=== PATIENT | female | born 1945 | race Caucasian/White ===

== ENCOUNTER → 2016-08-11 | Outpatient (CLI) | payer MEDICARE, OTHER ==
[~2016-08-11] MED LIST: IOHEXOL 350 MG/ML 100ML IJ ONE; READI-CAT 2 (BARIUM SULF)(VANILLA SMOOTHIE) 450ML ONE
[2016-08-11 09:00] VITALS: BP 150/77
[2016-08-11 09:55] VITALS: BP 137/70
== END | disposition home or self-care (01) ==
LOC: Rad HDHVI 08:48
PROVIDERS: ATTEND Internal Medicine Cardiovascular Disease
DX: I10 Essential (primary) hypertension (principal); M32.8 Other forms of systemic lupus erythematosus; E78.5 Hyperlipidemia, unspecified; M19.91 Primary osteoarthritis, unspecified site; G47.33 Obstructive sleep apnea (adult) (pediatric); R53.1 Weakness; E78.1 Pure hyperglyceridemia; I70.0 Atherosclerosis of aorta; N28.89 Other specified disorders of kidney and ureter; R06.02 Shortness of breath
CPT/HCPCS: 74177; G0463; Q9967

== ENCOUNTER → 2016-09-15 | Outpatient (CLI) | payer MEDICARE, OTHER | END | disposition home or self-care (01) | LOC: Rad HDHVI 08:45 | PROVIDERS: ATTEND Internal Medicine Cardiovascular Disease | DX: I10 Essential (primary) hypertension (principal); E78.4 Other hyperlipidemia; I07.1 Rheumatic tricuspid insufficiency; I34.2 Nonrheumatic mitral (valve) stenosis; I35.0 Nonrheumatic aortic (valve) stenosis | CPT/HCPCS: 93306 ==

== ENCOUNTER → 2016-09-23 | Outpatient (CLI) | payer MEDICARE, OTHER | END | disposition home or self-care (01) | LOC: LAB 13:48 | PROVIDERS: ATTEND Internal Medicine | DX: B01.9 Varicella without complication (principal) | CPT/HCPCS: 36415; 86706; 86735; 86762; 86765; 86787 ==

== ENCOUNTER → 2016-10-27 | Outpatient (CLI) | payer MEDICARE, OTHER | END | disposition home or self-care (01) | LOC: Rad HDHVI 11:33 | PROVIDERS: ATTEND Internal Medicine Cardiovascular Disease | DX: M53.3 Sacrococcygeal disorders, not elsewhere classified (principal) | CPT/HCPCS: 72220 ==

== ENCOUNTER → 2016-12-31 | Outpatient (CLI) | payer MEDICARE, OTHER | END | disposition home or self-care (01) | LOC: Rad HDHVI 13:51 | PROVIDERS: ATTEND Internal Medicine Cardiovascular Disease | DX: R07.9 Chest pain, unspecified (principal) | CPT/HCPCS: 93306 ==

== ENCOUNTER → 2017-01-12 | Outpatient (CLI) | payer MEDICARE, OTHER ==
[2017-01-12 10:16] LABS: Albumin 3.7 g/dL (3.4-5.0); Bilirubin, Total 0.5 mg/dL (0.2-1.0); Calcium 9.2 mg/dL (8.5-10.1); Potassium 3.7 mmol/L (3.5-5.1)
[2017-01-12 10:19] LABS: Basophils # (auto) 0 uL; Basophils % (auto) 0.1 % (0.0-2.0); Eosinophils # (auto) 0 uL; Eosinophils % (auto) 0.1 % (0.0-7.0); Hematocrit 39.8 % (36.0-46.0); Lymphocytes # (auto) 1.6 uL; Lymphocytes % (auto) 14.9 % (10.0-50.0); Mean Corpuscular Hemoglobin 29.6 pg (28.0-32.0); Mean Corpuscular Hgb Conc. 32.7 g/dL (32.0-36.0); Mean Corpuscular Volume 90.8 fL (80.0-100.0); Mean Platelet Volume 9.3 fL (7.4-10.4); Monocytes # (auto) 0.8 uL; Monocytes % (auto) 7.9 % (0.0-12.0); Neutrophils # (auto) 8.2 uL; Platelet Count (auto) 310 10^3/uL (140-450); Red Cell Distribution Width 14.1 % (11.6-16.0); White Blood Cell 10.7 10^3/uL (4.4-10.8)
== END | disposition home or self-care (01) ==
LOC: LAB 09:02
DX: Z79.899 Other long term (current) drug therapy (principal); M32.10 Systemic lupus erythematosus, organ or system involvement unspecified; I10 Essential (primary) hypertension; M33.20 Polymyositis, organ involvement unspecified; M06.9 Rheumatoid arthritis, unspecified; D64.9 Anemia, unspecified; M25.50 Pain in unspecified joint
CPT/HCPCS: 36415; 80053; 85025; 85652; 86141

== ENCOUNTER → 2017-01-25 | Outpatient (CLI) | payer MEDICARE, OTHER ==
[~2017-01-25] MED LIST changes: +ADENOSINE 56 MG in GIVE UN-DILUTED 0 ML IV ONE; +ADENOSINE 90 MG/30 ML INJ IV ONE; -IOHEXOL 350 MG/ML 100ML IJ ONE; -READI-CAT 2 (BARIUM SULF)(VANILLA SMOOTHIE) 450ML ONE
== END | disposition home or self-care (01) ==
LOC: Rad HDHVI 08:00
PROVIDERS: ATTEND Internal Medicine Cardiovascular Disease
DX: I25.10 Atherosclerotic heart disease of native coronary artery without angina pectoris (principal); I10 Essential (primary) hypertension; E78.00 Pure hypercholesterolemia, unspecified; R07.89 Other chest pain; Z95.0 Presence of cardiac pacemaker
CPT/HCPCS: 78452; 93005; 96374; 96375; A9500; J0153

== ENCOUNTER → 2017-07-22 | Outpatient (CLI) | payer MEDICARE, OTHER ==
[~2017-07-22] MED LIST changes: -ADENOSINE 56 MG in GIVE UN-DILUTED 0 ML IV ONE; -ADENOSINE 90 MG/30 ML INJ IV ONE; +ALBUAER3 IN; +AMLO5TAB2 PO; +ATEN-60 PO; +BENA20TA14 PO; +CHOL20007 PO; +DICL-176 PO; +DULO60CA PO; +FENO160T8 PO; +NITR50CA24 PO; +PANT40TA2 PO; +PREG50CA PO
[2017-07-22 11:12] LABS: Basophils # (auto) 0 uL; Basophils % (auto) 0.5 % (0.0-2.0); Eosinophils # (auto) 0.1 uL; Eosinophils % (auto) 0.7 % (0.0-7.0); Hematocrit 40.6 % (36.0-46.0); Hemoglobin 13.2 g/dL (12.2-16.2); Lymphocytes # (auto) 1.7 uL; Lymphocytes % (auto) 20.7 % (10.0-50.0); Mean Corpuscular Hemoglobin 28.8 pg (28.0-32.0); Mean Corpuscular Hgb Conc. 32.5 g/dL (32.0-36.0); Mean Corpuscular Volume 88.7 fL (80.0-100.0); Monocytes # (auto) 0.9 uL; Monocytes % (auto) 11.4 % (0.0-12.0); Neutrophils # (auto) 5.5 uL; Neutrophils % (auto) 66.7 % (37.0-80.0); Platelet Count (auto) 229 10^3/uL (140-450); Red Cell Distribution Width 14.6 % (11.8-14.3); White Blood Cell 8.2 10^3/uL (4.4-10.8)
[2017-07-22 11:30] LABS: Albumin 3.9 g/dL (3.4-5.0); BUN/Creatinine Ratio 25.2; Bilirubin, Total 0.5 mg/dL (0.2-1.0); Calcium 9.2 mg/dL (8.5-10.1); Potassium 4.6 mmol/L (3.5-5.1); Total Protein 7.6 g/dL (6.4-8.2)
== END | disposition home or self-care (01) ==
LOC: LAB 10:47
DX: I10 Essential (primary) hypertension (principal); M06.9 Rheumatoid arthritis, unspecified; D64.9 Anemia, unspecified
CPT/HCPCS: 36415; 80053; 85025; 85652; 86141

== ENCOUNTER → 2018-01-24 | Outpatient (CLI) | payer MEDICARE, BC ==
[~2018-01-24] MED LIST changes: +IOHEXOL 350 MG/ML 100ML IJ ONE
[2018-01-24 09:15] VITALS: BP 128/67
[2018-01-24 10:20] VITALS: BP 138/73
== END | disposition home or self-care (01) ==
LOC: Rad HDHVI 09:27
PROVIDERS: ATTEND Internal Medicine Cardiovascular Disease
DX: I51.7 Cardiomegaly (principal); I70.0 Atherosclerosis of aorta; I25.10 Atherosclerotic heart disease of native coronary artery without angina pectoris; I10 Essential (primary) hypertension; J44.9 Chronic obstructive pulmonary disease, unspecified; E78.5 Hyperlipidemia, unspecified; M54.5 Low back pain; E78.00 Pure hypercholesterolemia, unspecified; Z79.899 Other long term (current) drug therapy
CPT/HCPCS: 70491; 71260; 82565; G0463; Q9967

== ENCOUNTER → 2018-03-22 | Outpatient (CLI) | payer MEDICARE, BC ==
[~2018-03-22] MED LIST changes: +CALCTAB25 PO; -IOHEXOL 350 MG/ML 100ML IJ ONE; +MIRA25TA OR; +MULTTAB PO
[2018-03-22 10:30] VITALS: BP_SYST 125; BP_SYST 143; BP_DIAS 66; BP_DIAS 77
[2018-03-22 12:05] LABS: Basophils # (auto) 0 uL; Basophils % (auto) 0.2 % (0.0-2.0); Eosinophils # (auto) 0 uL; Eosinophils % (auto) 0.7 % (0.0-7.0); Hemoglobin 12.9 g/dL (12.2-16.2); Lymphocytes % (auto) 16.5 % (10.0-50.0); Mean Corpuscular Hemoglobin 29.5 pg (28.0-32.0); Mean Corpuscular Hgb Conc. 33.2 g/dL (32.0-36.0); Mean Corpuscular Volume 88.8 fL (80.0-100.0); Monocytes # (auto) 0.5 uL; Neutrophils # (auto) 4.5 uL; Neutrophils % (auto) 74.6 % (37.0-80.0); Nucleated Red Blood Cells % 0.1 %; Platelet Count (auto) 201 10^3/uL (140-450); Red Blood Cells 4.39 10^6/uL (4.0-5.20); Red Cell Distribution Width 13.6 % (11.8-14.3); White Blood Cell 6.1 10^3/uL (4.4-10.8)
[2018-03-22 12:34] LABS: BUN/Creatinine Ratio 23.4; Calcium 8.8 mg/dL (8.5-10.1); Potassium 3.6 mmol/L (3.5-5.1)
[2018-03-22 12:37] LABS: INR 0.99 (0.9-1.15); Partial Thromboplastin Time 30.4 sec (23.78-33.04); Prothrombin Time 10.6 sec (9.27-12.13)
== END | disposition home or self-care (01) ==
LOC: CHF HDHVI 10:00
PROVIDERS: ATTEND Internal Medicine Cardiovascular Disease
DX: Z01.812 Encounter for preprocedural laboratory examination (principal); R79.1 Abnormal coagulation profile; D64.9 Anemia, unspecified; I10 Essential (primary) hypertension; R94.31 Abnormal electrocardiogram [ECG] [EKG]
CPT/HCPCS: 36415; 80048; 85025; 85610; 85730; 93005; G0463

== ENCOUNTER 2018-03-24 09:44 | Day surgery (SDC) | payer MEDICARE, OTHER ==
[~2018-03-24] VITALS: Ht 172.7 cm; Wt 69.5 kg
[2018-03-24] MEDS ORDERED: fentaNYL CITRATE 100 MCG/2 ML VL ONE (11:47)
[2018-03-24] MEDS ORDERED: MIDAZOLAM HCL 1MG/1ML-2 ML VIAL ONE (11:47)
[2018-03-24] MEDS ORDERED: ANGIOMAX 250 MG VIAL IV ONE (11:47)
[2018-03-24] MEDS ORDERED: SODIUM CHL 0.9% 0 ML ONE (11:48)
[2018-03-24] MEDS ORDERED: methylPREDNISolone SOD SUCC 125 MG/2 ML VL ONE (11:50)
[2018-03-24] MEDS ORDERED: diphenhdrAMINE HCL 50 MG/1 ML VL ONE (11:50)
[2018-03-24] MEDS ORDERED: IOHEXOL 350 MG/ML 100ML IJ ONE (12:06)
[2018-03-24] MEDS ORDERED: LIDOCAINE 2%HCL (LOCAL ANESTH.) INJ 10ml MDV ONE (12:06)
== END 2018-03-24 15:30 | disposition home or self-care (01) ==
LOC: CATH 09:44
PROVIDERS: ATTEND Internal Medicine Cardiovascular Disease
DX: I25.10 Atherosclerotic heart disease of native coronary artery without angina pectoris (principal); R94.39 Abnormal result of other cardiovascular function study; J40 Bronchitis, not specified as acute or chronic; G47.30 Sleep apnea, unspecified; F41.9 Anxiety disorder, unspecified; F32.9 Major depressive disorder, single episode, unspecified; E78.5 Hyperlipidemia, unspecified; J44.9 Chronic obstructive pulmonary disease, unspecified; I11.0 Hypertensive heart disease with heart failure; Z95.0 Presence of cardiac pacemaker; Z88.6 Allergy status to analgesic agent; Z88.1 Allergy status to other antibiotic agents; Z88.5 Allergy status to narcotic agent; Z91.041 Radiographic dye allergy status; Z88.0 Allergy status to penicillin; Z88.2 Allergy status to sulfonamides; Z91.018 Allergy to other foods; Z90.721 Acquired absence of ovaries, unilateral; Z80.9 Family history of malignant neoplasm, unspecified; Z82.49 Family history of ischemic heart disease and other diseases of the circulatory system; Z84.89 Family history of other specified conditions; Z95.820 Peripheral vascular angioplasty status with implants and grafts; Z82.3 Family history of stroke; Z79.899 Other long term (current) drug therapy
CPT/HCPCS: 93458; 99152; C1760; C1894; J1200; J1644; J2001; J2250; J2930; J3010; J7030; Q9967; A6257

== ENCOUNTER → 2018-08-10 | Outpatient (CLI) | payer MEDICARE, OTHER ==
[~2018-08-10] MED LIST changes: +AMLO5TAB13 PO; -AMLO5TAB2 PO; +IOHEXOL 350 MG/ML 100ML IJ ONE; +SODIUM CHLORIDE 0.9% 1,000 ML IV ONE
--- NOTE | 2018-08-10 15:45 | NUR ---
CHF NS 250ML BOLUS STARTED DUE TO ELEVATED EZ CHEM 1.[address] SEWELL
--- NOTE | 2018-08-10 16:12 | NUR ---
CHF CT ABD PELVIS WITH CONTRAST C/O BACK PAIN IV insertion IV access obtained, via clean sterile technique by inserting 22 gauge catheter at after attempt(s). IV secured properly. No trauma to site. Patient tolerated procedure well.
[2018-08-10 17:00] VITALS: BP 139/76
--- NOTE | 2018-08-10 17:00 | NUR ---
CHF IV NS COMPLETE AT 1650 IV removal IV DC'd with sterile technique, catheter fully intact. Pressure dressing applied to site. Patient tolerated procedure well. Discharged with aftercare instructions per MD. NOTE: Discharge Instructions See e-MAR for any mediations given with this visit. Patient education given on disease process. Patient verbalized understanding. Previous labs reviewed. Patient discharged in stable condition with after care instructions and follow up appointment.
== END | disposition home or self-care (01) ==
LOC: Rad HDHVI 16:07
PROVIDERS: ATTEND Internal Medicine Cardiovascular Disease
DX: N28.9 Disorder of kidney and ureter, unspecified (principal); R16.0 Hepatomegaly, not elsewhere classified; K76.0 Fatty (change of) liver, not elsewhere classified; K55.1 Chronic vascular disorders of intestine; K83.1 Obstruction of bile duct; M54.9 Dorsalgia, unspecified; M25.472 Effusion, left ankle; I11.0 Hypertensive heart disease with heart failure; I50.9 Heart failure, unspecified; F41.9 Anxiety disorder, unspecified; I25.10 Atherosclerotic heart disease of native coronary artery without angina pectoris; J44.9 Chronic obstructive pulmonary disease, unspecified; F32.9 Major depressive disorder, single episode, unspecified; G47.30 Sleep apnea, unspecified; E78.00 Pure hypercholesterolemia, unspecified; G47.33 Obstructive sleep apnea (adult) (pediatric); I70.0 Atherosclerosis of aorta; M32.10 Systemic lupus erythematosus, organ or system involvement unspecified; M06.9 Rheumatoid arthritis, unspecified; E11.9 Type 2 diabetes mellitus without complications; E03.9 Hypothyroidism, unspecified; M19.90 Unspecified osteoarthritis, unspecified site; E78.5 Hyperlipidemia, unspecified; Z79.899 Other long term (current) drug therapy; Z95.0 Presence of cardiac pacemaker
CPT/HCPCS: 73610; 73630; 74177; 82565; 96360; G0463; J7030; Q9967

== ENCOUNTER → 2018-08-19 | Outpatient (CLI) | payer MEDICARE, BC ==
[~2018-08-19] MED LIST changes: -IOHEXOL 350 MG/ML 100ML IJ ONE; -SODIUM CHLORIDE 0.9% 1,000 ML IV ONE
[2018-08-19 11:59] LABS: Urine Blood Negative /uL (Negative); Urine Specific Gravity 1.014 (1.001-1.035)
[2018-08-19 12:09] LABS: Free T4 (Free Thyroxine) 1.26 ng/dL (0.89-1.76)
[2018-08-19 12:14] LABS: Albumin 3.9 g/dL (3.4-5.0); Chloride 108 mmol/L (98-107); Potassium 3.7 mmol/L (3.5-5.1); Sodium 140 mmol/L (136-145)
[2018-08-19 12:17] LABS: Basophils # (auto) 0 uL; Basophils % (auto) 0.2 % (0.0-2.0); Eosinophils # (auto) 0.1 uL; Eosinophils % (auto) 0.7 % (0.0-7.0); Hematocrit 40.3 % (36.0-46.0); Hemoglobin 13.4 g/dL (12.2-16.2); Lymphocytes # (auto) 1.3 uL; Lymphocytes % (auto) 15.9 % (10.0-50.0); Mean Corpuscular Hemoglobin 29.7 pg (28.0-32.0); Mean Corpuscular Hgb Conc. 33.4 g/dL (32.0-36.0); Mean Corpuscular Volume 89.1 fL (80.0-100.0); Monocytes # (auto) 0.7 uL; Neutrophils # (auto) 5.9 uL; Neutrophils % (auto) 74.2 % (37.0-80.0); Nucleated Red Blood Cells % 0.3 %; Platelet Count (auto) 247 10^3/uL (140-450); Red Blood Cells 4.52 10^6/uL (4.0-5.20); Red Cell Distribution Width 14.4 % (11.8-14.3); White Blood Cell 7.9 10^3/uL (4.4-10.8)
[2018-08-19 12:22] LABS: Alanine Aminotransferase 21 U/L (13-56); Alkaline Phosphatase 63 U/L (45-117); Anion Gap 5 (5-15); Aspartate Aminotransferase 21 U/L (15-37); Bilirubin, Total 0.5 mg/dL (0.2-1.0); Blood Urea Nitrogen 23 mg/dL (7-18); Calcium 8.6 mg/dL (8.5-10.1); Carbon Dioxide 27 mmol/L (21-32); Cholesterol 194 mg/dL (< 200); GFR African American > 60 mL/min; GFR Non-African American 58 mL/min; Glucose 97 mg/dL (74-106); HDL Cholesterol 44 mg/dL (40-59); LDL Cholesterol 135 mg/dL (< 100); Total Protein 7.4 g/dL (6.4-8.2); Triglycerides 107 mg/dL (< 150)
== END | disposition home or self-care (01) ==
LOC: Rad HDHVI 08:01
PROVIDERS: ATTEND Internal Medicine Cardiovascular Disease
DX: E78.2 Mixed hyperlipidemia (principal); R07.89 Other chest pain; R00.2 Palpitations; E03.9 Hypothyroidism, unspecified; E11.9 Type 2 diabetes mellitus without complications; E55.9 Vitamin D deficiency, unspecified; D51.9 Vitamin B12 deficiency anemia, unspecified; N39.0 Urinary tract infection, site not specified
CPT/HCPCS: 36415; 80053; 80061; 81003; 82306; 82607; 83036; 84439; 84443; 85025; 87086; 93306

== ENCOUNTER → 2018-09-05 | Outpatient (CLI) | payer MEDICARE, BC ==
[~2018-09-05] MED LIST changes: +POTASSIUM CHL 10 Meq TABLET PO ONE; +POTASSIUM CHL 20 Meq TABLET PO SCH
[2018-09-05 16:50] VITALS: BP 124/76
--- NOTE | 2018-09-05 16:50 | NUR ---
[facility]F PT TO [facility] FOR MD SEWELL ORDER FOR POTASSIUM 80MEQ PO FOR HYPOKALEMIA
[2018-09-05 17:09] VITALS: BP 124/76
--- NOTE | 2018-09-05 17:10 | NUR ---
CHF Discharge Instructions See e-MAR for any mediations given with this visit. POTASSIUM 40 MEQ PO X 2 . Patient education given on disease process. Patient verbalized understanding. Previous labs reviewed. Patient discharged in stable condition with after care instructions and follow up appointment.
== END | disposition home or self-care (01) ==
LOC: CHF HDHVI 16:42
PROVIDERS: ATTEND Internal Medicine Cardiovascular Disease
DX: E87.6 Hypokalemia (principal)
CPT/HCPCS: G0463

== ENCOUNTER → 2018-09-07 | Outpatient (CLI) | payer MEDICARE, BC ==
[~2018-09-07] MED LIST changes: -POTASSIUM CHL 10 Meq TABLET PO ONE; -POTASSIUM CHL 20 Meq TABLET PO SCH
[2018-09-07 12:39] LABS: CRP High Sensitivity 0.14 mg/dL (< 0.3); Calcium 9.9 mg/dL (8.5-10.1); Potassium 4.5 mmol/L (3.5-5.1)
== END | disposition home or self-care (01) ==
LOC: LAB 09:32
PROVIDERS: ATTEND Internal Medicine Cardiovascular Disease
DX: E11.9 Type 2 diabetes mellitus without complications (principal); I10 Essential (primary) hypertension; R70.0 Elevated erythrocyte sedimentation rate; R79.82 Elevated C-reactive protein (CRP)
CPT/HCPCS: 36415; 80048; 83036; 85652; 86038; 86141

== ENCOUNTER → 2018-09-21 | Outpatient (CLI) | payer MEDICARE, BC | END | disposition home or self-care (01) | LOC: Rad HDHVI 09:15 | PROVIDERS: ATTEND Internal Medicine Cardiovascular Disease | DX: R09.89 Other specified symptoms and signs involving the circulatory and respiratory systems (principal); I10 Essential (primary) hypertension; R07.89 Other chest pain | CPT/HCPCS: 93880 ==

== ENCOUNTER → 2018-09-26 | Outpatient (CLI) | payer MEDICARE, BC ==
[~2018-09-26] VITALS: Ht 172.7 cm; Wt 678.1 kg
[~2018-09-26] MED LIST changes: +ADENOSINE 90 MG/30 ML INJ IV ONE; +ADENOSINE IV ONE; +GIVE UN DILUTED IV ONE
== END | disposition home or self-care (01) ==
LOC: Rad HDHVI 14:06
PROVIDERS: ATTEND Internal Medicine Cardiovascular Disease
DX: I10 Essential (primary) hypertension (principal); G47.30 Sleep apnea, unspecified; M32.9 Systemic lupus erythematosus, unspecified; E87.6 Hypokalemia
CPT/HCPCS: 78452; 93005; 96374; 96375; A9500; J0153

== ENCOUNTER → 2018-10-18 | Outpatient (CLI) | payer MEDICARE, BC ==
[~2018-10-18] MED LIST changes: -ADENOSINE 90 MG/30 ML INJ IV ONE; -ADENOSINE IV ONE; -GIVE UN DILUTED IV ONE
== END | disposition home or self-care (01) ==
LOC: LAB 08:16
PROVIDERS: ATTEND Internal Medicine Cardiovascular Disease
DX: M32.10 Systemic lupus erythematosus, organ or system involvement unspecified (principal)
CPT/HCPCS: 86225; 86235

== ENCOUNTER → 2019-01-06 | Outpatient (CLI) | payer MEDICARE, BC ==
[2019-01-06 15:06] LABS: Urine WBC None Seen /hpf (0 - 5)
[2019-01-06 16:08] LABS: Urine Bacteria FEW /hpf (None Seen); Urine Blood Negative /uL (Negative); Urine Hyaline Cast FEW /lpf (0 - 2); Urine Mucus FEW (None Seen); Urine Specific Gravity 1.026 (1.001-1.035)
[2019-01-06 16:23] LABS: Calcium 9.6 mg/dL (8.5-10.1); Potassium 3.9 mmol/L (3.5-5.1)
[2019-01-06 16:24] LABS: Basophils # (auto) 0 uL; Basophils % (auto) 0.3 % (0.0-2.0); Eosinophils # (auto) 0 uL; Eosinophils % (auto) 0.7 % (0.0-7.0); Hematocrit 37.4 % (36.0-46.0); Hemoglobin 12.4 g/dL (12.2-16.2); Lymphocytes # (auto) 1.2 uL; Lymphocytes % (auto) 19.5 % (10.0-50.0); Mean Corpuscular Hemoglobin 29.6 pg (28.0-32.0); Mean Corpuscular Hgb Conc. 33.1 g/dL (32.0-36.0); Mean Corpuscular Volume 89.4 fL (80.0-100.0); Monocytes # (auto) 0.5 uL; Monocytes % (auto) 8.7 % (0.0-12.0); Neutrophils # (auto) 4.5 uL; Neutrophils % (auto) 70.8 % (37.0-80.0); Nucleated Red Blood Cells % 0.1 %; Platelet Count (auto) 245 10^3/uL (140-450); Red Blood Cells 4.19 10^6/uL (4.0-5.20); Red Cell Distribution Width 13.9 % (11.8-14.3); White Blood Cell 6.3 10^3/uL (4.4-10.8)
[2019-01-06 16:31] LABS: Albumin 3.8 g/dL (3.4-5.0); Bilirubin, Total 0.4 mg/dL (0.2-1.0); CRP High Sensitivity 0.18 mg/dL (< 0.3); Total Protein 7.4 g/dL (6.4-8.2)
== END | disposition home or self-care (01) ==
LOC: CHF HDHVI 12:24
PROVIDERS: ATTEND Internal Medicine Cardiovascular Disease
DX: M32.10 Systemic lupus erythematosus, organ or system involvement unspecified (principal); D64.9 Anemia, unspecified; R70.0 Elevated erythrocyte sedimentation rate; I10 Essential (primary) hypertension
CPT/HCPCS: 36415; 80053; 81001; 85025; 85652; 86141

== ENCOUNTER → 2019-05-09 | Outpatient (CLI) | payer MEDICARE, BC ==
[~2019-05-09] MED LIST changes: -AMLO5TAB13 PO; +AMLO5TAB15 PO
[2019-05-09 12:24] LABS: Basophils # (auto) 0 uL; Basophils % (auto) 0.4 % (0.0-2.0); Eosinophils # (auto) 0 uL; Eosinophils % (auto) 0.8 % (0.0-7.0); Hematocrit 38.5 % (36.0-46.0); Hemoglobin 12.5 g/dL (12.2-16.2); Lymphocytes # (auto) 1.4 uL; Lymphocytes % (auto) 22.8 % (10.0-50.0); Mean Corpuscular Hemoglobin 28.8 pg (28.0-32.0); Mean Corpuscular Hgb Conc. 32.4 g/dL (32.0-36.0); Mean Corpuscular Volume 88.9 fL (80.0-100.0); Monocytes # (auto) 0.6 uL; Neutrophils # (auto) 3.9 uL; Nucleated Red Blood Cells % 0.1 %; Platelet Count (auto) 203 10^3/uL (140-450); Red Blood Cells 4.33 10^6/uL (4.0-5.20); Red Cell Distribution Width 14.9 % (11.8-14.3); White Blood Cell 5.9 10^3/uL (4.4-10.8)
[2019-05-09 12:28] LABS: Urine Blood Negative /uL (Negative); Urine Specific Gravity 1.019 (1.001-1.035)
[2019-05-09 12:42] LABS: Free T4 (Free Thyroxine) 1.4 ng/dL (0.89-1.76)
[2019-05-09 12:57] LABS: Albumin 3.7 g/dL (3.4-5.0); BUN/Creatinine Ratio 19.6; Bilirubin, Total 0.4 mg/dL (0.2-1.0); Calcium 8.8 mg/dL (8.5-10.1); Total Protein 7.5 g/dL (6.4-8.2)
== END | disposition home or self-care (01) ==
LOC: Rad HDHVI 08:24
PROVIDERS: ATTEND Internal Medicine Cardiovascular Disease
DX: M16.0 Bilateral primary osteoarthritis of hip (principal); K42.9 Umbilical hernia without obstruction or gangrene; E03.9 Hypothyroidism, unspecified; K90.9 Intestinal malabsorption, unspecified; N39.0 Urinary tract infection, site not specified; D51.9 Vitamin B12 deficiency anemia, unspecified; I70.0 Atherosclerosis of aorta; Z79.899 Other long term (current) drug therapy
CPT/HCPCS: 36415; 72192; 80053; 80061; 81003; 82306; 82607; 83036; 84439; 84443; 85025

== ENCOUNTER → 2019-07-21 | Outpatient (CLI) | payer MEDICARE, BC ==
[~2019-07-21] MED LIST changes: +READI-CAT 2 (BARIUM SULF)(VANILLA SMOOTHIE) 450ML ONE
== END | disposition home or self-care (01) ==
LOC: Rad HDHVI 12:13
PROVIDERS: ATTEND Internal Medicine Cardiovascular Disease
DX: I70.8 Atherosclerosis of other arteries (principal); I34.1 Nonrheumatic mitral (valve) prolapse; R10.9 Unspecified abdominal pain; E11.9 Type 2 diabetes mellitus without complications; R00.1 Bradycardia, unspecified; E23.0 Hypopituitarism; E78.2 Mixed hyperlipidemia
CPT/HCPCS: 74176

== ENCOUNTER → 2019-11-06 | Outpatient (CLI) | payer MEDICARE, BC ==
[~2019-11-06] MED LIST changes: -READI-CAT 2 (BARIUM SULF)(VANILLA SMOOTHIE) 450ML ONE
== END | disposition home or self-care (01) ==
LOC: Rad HDHVI 12:51
PROVIDERS: ATTEND Internal Medicine Cardiovascular Disease
DX: I49.5 Sick sinus syndrome (principal); R06.02 Shortness of breath; R07.89 Other chest pain; R00.2 Palpitations
CPT/HCPCS: 93306

== ENCOUNTER → 2019-11-21 | Outpatient (CLI) | payer MEDICARE, BC ==
[~2019-11-21] VITALS: Ht 172.7 cm; Wt 59.0 kg
[~2019-11-21] MED LIST changes: +ADENOSINE 50 MG in GIVE UN-DILUTED 0 ML IV ONE; +ADENOSINE 90 MG/30 ML INJ IV ONE
[2019-11-21 12:03] LABS: Basophils # (auto) 0 10 ^3/uL (0-0.2); Basophils % (auto) 0.3 % (0.0-2.0); Eosinophils # (auto) 0.1 10 ^3/uL (0-0.8); Eosinophils % (auto) 1.4 % (0.0-7.0); Hematocrit 41.5 % (36.0-46.0); Hemoglobin 13.4 g/dL (12.2-16.2); Lymphocytes # (auto) 1.2 10 ^3/uL (0.4-5.4); Lymphocytes % (auto) 17.4 % (10.0-50.0); Mean Corpuscular Hemoglobin 28.7 pg (28.0-32.0); Mean Corpuscular Hgb Conc. 32.4 g/dL (32.0-36.0); Mean Corpuscular Volume 88.7 fL (80.0-100.0); Monocytes # (auto) 0.7 10 ^3/uL (0-1.3); Monocytes % (auto) 9.4 % (0.0-12.0); Neutrophils % (auto) 71.5 % (37.0-80.0); Platelet Count (auto) 222 10^3/uL (140-450); Red Blood Cells 4.68 10^6/uL (4.0-5.20); Red Cell Distribution Width 14.3 % (11.8-14.3)
[2019-11-21 12:04] LABS: Urine Blood Negative /uL (Negative)
[2019-11-21 12:26] LABS: Albumin 3.6 g/dL (3.4-5.0); BUN/Creatinine Ratio 35.7; Calcium 9.5 mg/dL (8.5-10.1); Potassium 3.9 mmol/L (3.5-5.1)
[2019-11-21 12:32] LABS: Bilirubin, Total 0.4 mg/dL (0.2-1.0); Total Protein 7.3 g/dL (6.4-8.2)
[2019-11-21 12:35] LABS: Free T4 (Free Thyroxine) 1.12 ng/dL (0.89-1.76)
== END | disposition home or self-care (01) ==
LOC: Rad HDHVI 07:53
PROVIDERS: ATTEND Internal Medicine Cardiovascular Disease
DX: Z00.00 Encounter for general adult medical examination without abnormal findings (principal); I10 Essential (primary) hypertension; I25.10 Atherosclerotic heart disease of native coronary artery without angina pectoris; E11.9 Type 2 diabetes mellitus without complications; E78.00 Pure hypercholesterolemia, unspecified; R07.89 Other chest pain; E03.9 Hypothyroidism, unspecified; K90.9 Intestinal malabsorption, unspecified; N39.0 Urinary tract infection, site not specified; D51.9 Vitamin B12 deficiency anemia, unspecified; Z79.899 Other long term (current) drug therapy; Z95.0 Presence of cardiac pacemaker; Z82.49 Family history of ischemic heart disease and other diseases of the circulatory system
CPT/HCPCS: 36415; 78452; 80053; 80061; 81003; 82306; 82607; 83036; 84439; 84443; 85025; 93005; 96374; 96375; A9500; J0153

== ENCOUNTER → 2021-03-12 | Outpatient (CLI) | payer MEDICARE, BC ==
[~2021-03-12] MED LIST changes: -ADENOSINE 50 MG in GIVE UN-DILUTED 0 ML IV ONE; -ADENOSINE 90 MG/30 ML INJ IV ONE; +AMLO-489 PO; -AMLO5TAB15 PO; -DICL-176 PO; +DICL75TA3 PO; +MULT-733 PO; -MULTTAB PO
== END | disposition home or self-care (01) ==
LOC: Rad HDHVI 12:40
PROVIDERS: ATTEND Internal Medicine Cardiovascular Disease
DX: M47.817 Spondylosis without myelopathy or radiculopathy, lumbosacral region (principal); M48.07 Spinal stenosis, lumbosacral region; M51.36 Other intervertebral disc degeneration, lumbar region; M48.061 Spinal stenosis, lumbar region without neurogenic claudication; M51.26 Other intervertebral disc displacement, lumbar region; M16.0 Bilateral primary osteoarthritis of hip; N32.89 Other specified disorders of bladder; K42.9 Umbilical hernia without obstruction or gangrene; M77.8 Other enthesopathies, not elsewhere classified
CPT/HCPCS: 72131; 72192

== ENCOUNTER → 2021-10-10 | Outpatient (CLI) | payer MEDICARE, BC ==
[2021-10-10 15:28] LABS: Basophils # (auto) 0.1 10 ^3/uL (0-0.2); Basophils % (auto) 1.5 % (0.0-2.0); Eosinophils # (auto) 0 10 ^3/uL (0-0.8); Eosinophils % (auto) 0.7 % (0.0-7.0); Hematocrit 34.1 % (36.0-46.0); Hemoglobin 11.2 g/dL (12.2-16.2); Lymphocytes # (auto) 1.1 10 ^3/uL (0.4-5.4); Lymphocytes % (auto) 17.1 % (10.0-50.0); Mean Corpuscular Hemoglobin 27.9 pg (28.0-32.0); Mean Corpuscular Hgb Conc. 32.7 g/dL (32.0-36.0); Mean Corpuscular Volume 85.5 fL (80.0-100.0); Monocytes # (auto) 0.8 10 ^3/uL (0-1.3); Monocytes % (auto) 11.9 % (0.0-12.0); Neutrophils # (auto) 4.6 10 ^3/uL (1.6-8.6); Neutrophils % (auto) 68.8 % (37.0-80.0); Nucleated Red Blood Cells % 0.1 %; Red Cell Distribution Width 14.9 % (11.8-14.3); White Blood Cell 6.6 10^3/uL (4.4-10.8)
[2021-10-10 15:35] LABS: Urine Blood Negative /uL (Negative); Urine Specific Gravity 1.014 (1.001-1.035)
[2021-10-10 15:38] LABS: Albumin 3.4 g/dL (3.4-5.0); Potassium 4.7 mmol/L (3.5-5.1)
[2021-10-10 15:45] LABS: BUN/Creatinine Ratio 19.8; Bilirubin, Direct 0.1 mg/dL (0-0.2); Bilirubin, Total 0.4 mg/dL (0.2-1.0); Calcium 8.6 mg/dL (8.5-10.1); Total Protein 6.4 g/dL (6.4-8.2)
== END | disposition home or self-care (01) ==
LOC: LAB 11:30
PROVIDERS: ATTEND Internal Medicine Cardiovascular Disease
DX: E11.9 Type 2 diabetes mellitus without complications (principal); D51.3 Other dietary vitamin B12 deficiency anemia; D64.9 Anemia, unspecified; E55.9 Vitamin D deficiency, unspecified; I10 Essential (primary) hypertension; R00.2 Palpitations; R53.1 Weakness; R30.0 Dysuria
CPT/HCPCS: 36415; 80048; 80061; 80076; 81003; 82306; 83036; 84443; 85025

== ENCOUNTER → 2021-10-13 | Outpatient (CLI) | payer MEDICARE, BC ==
[~2021-10-13] MED LIST changes: +READI-CAT 2 (BARIUM SULF)(VANILLA SMOOTHIE) 450ML ONE
== END | disposition home or self-care (01) ==
LOC: Rad HDHVI 09:01
PROVIDERS: ATTEND Internal Medicine Cardiovascular Disease
DX: J81.1 Chronic pulmonary edema (principal); I70.0 Atherosclerosis of aorta; J90 Pleural effusion, not elsewhere classified; M47.819 Spondylosis without myelopathy or radiculopathy, site unspecified
CPT/HCPCS: 74176

== ENCOUNTER → 2021-10-16 | Outpatient (CLI) | payer MEDICARE, BC ==
[~2021-10-16] MED LIST changes: +HYDR200T36 PO; +METF-370 PO; -READI-CAT 2 (BARIUM SULF)(VANILLA SMOOTHIE) 450ML ONE
== END | disposition home or self-care (01) ==
LOC: Rad HDHVI 08:09
PROVIDERS: ATTEND Internal Medicine Cardiovascular Disease
DX: I08.3 Combined rheumatic disorders of mitral, aortic and tricuspid valves (principal)
CPT/HCPCS: 93306

== ENCOUNTER → 2021-10-21 | Outpatient (CLI) | payer MEDICARE, BC ==
[~2021-10-21] MED LIST changes: +CYANOCOBALAMIN (B-12) 1000 MCG/1 ML VIAL IM ONE; +CYANOCOBALAMIN (B-12) 1000 MCG/1 ML VIAL ONE; -HYDR200T36 PO; -METF-370 PO
[2021-10-21 11:10] VITALS: BP 165/87
[2021-10-21 12:10] VITALS: BP 164/90
== END | disposition home or self-care (01) ==
LOC: Rad HDHVI 11:09
PROVIDERS: ATTEND Internal Medicine Cardiovascular Disease
DX: I11.0 Hypertensive heart disease with heart failure (principal); I50.23 Acute on chronic systolic (congestive) heart failure; Q25.46 Tortuous aortic arch; I70.0 Atherosclerosis of aorta; E11.9 Type 2 diabetes mellitus without complications
CPT/HCPCS: 71046; 83880; 96372; G0463; J3420

== ENCOUNTER 2021-10-27 23:42 | Inpatient (IN) | payer MEDICARE, BC ==
[~2021-10-27] VITALS: Ht 172.7 cm; Wt 71.7 kg
[~2021-10-27 23:42] MED LIST changes: -CYANOCOBALAMIN (B-12) 1000 MCG/1 ML VIAL IM ONE; -CYANOCOBALAMIN (B-12) 1000 MCG/1 ML VIAL ONE
[2021-10-28] MEDS ORDERED: ASPirin 81 mg TAB PO ONE (00:30)
[2021-10-28] MEDS ORDERED: SODIUM CHLORIDE 0.9% 1,000 ML IVB ONE (00:30)
[2021-10-28 00:52] LABS: Basophils # (auto) 0 10 ^3/uL (0-0.2); Basophils % (auto) 0.3 % (0.0-2.0); Eosinophils # (auto) 0 10 ^3/uL (0-0.8); Eosinophils % (auto) 0.5 % (0.0-7.0); Hematocrit 32.2 % (36.0-46.0); Hemoglobin 10.6 g/dL (12.2-16.2); Lymphocytes # (auto) 0.8 10 ^3/uL (0.4-5.4); Lymphocytes % (auto) 9.4 % (10.0-50.0); Mean Corpuscular Hemoglobin 27.9 pg (28.0-32.0); Mean Corpuscular Hgb Conc. 32.8 g/dL (32.0-36.0); Monocytes # (auto) 0.9 10 ^3/uL (0-1.3); Monocytes % (auto) 10.6 % (0.0-12.0); Neutrophils # (auto) 7.1 10 ^3/uL (1.6-8.6); Neutrophils % (auto) 79.2 % (37.0-80.0); Nucleated Red Blood Cells % 0.1 %; Red Blood Cells 3.79 10^6/uL (4.0-5.20); Red Cell Distribution Width 15.3 % (11.8-14.3)
[2021-10-28 01:13] LABS: Potassium 3.7 mmol/L (3.5-5.1)
[2021-10-28 01:17] LABS: Albumin 3.1 g/dL (3.4-5.0); Calcium 8.5 mg/dL (8.5-10.1)
[2021-10-28 01:20] LABS: Bilirubin, Total 0.5 mg/dL (0.2-1.0); Total Protein 6.2 g/dL (6.4-8.2)
[2021-10-28 02:31] LABS: Lipase 180 U/L (73-393)
[2021-10-28 03:00] VITALS: BP 166/100
[2021-10-28] MEDS ORDERED: FUROSEMIDE 40 MG/4 ML VIAL IV ONE (03:15)
[2021-10-28] MEDS ORDERED: ALBUTEROL SULF HFA 90MCG INH 200DOSE IN PRN (03:15)
[2021-10-28] MEDS ORDERED: MORPHINE SULFATE INJECTION 2 MG/ML SYRG IV PRN (03:15)
[2021-10-28] MEDS ORDERED: LABETALOL HCL 5 MG/ML 4ML SYRINGE IV ONE (03:15)
[2021-10-28] MEDS ORDERED: ALBUTEROL SULF 2.5 MG/0.5ML(0.5%) NEB SOLN NEB PRN (04:15)
[2021-10-28] MEDS: FUROSEMIDE 40 MG/4 ML VIAL IV SCH ×2 (06:00→18:02)
[2021-10-28] MEDS: HEPARIN SODIUM (PORCINE) 5000 UNITS/ML 1ML VIAL SC SCH ×3 (08:23→21:28)
[2021-10-28 09:00] VITALS: BP 159/89
[2021-10-28] MEDS ORDERED: AMLO-489 PO (09:51)
[2021-10-28] MEDS ORDERED: ATEN-60 PO (09:51)
[2021-10-28] MEDS ORDERED: METF-370 PO (09:52)
[2021-10-28] MEDS ORDERED: HYDR200T36 PO (09:52)
[2021-10-28] MEDS: PANTOPRAZOLE 40 MG TAB PO SCH ×2 (10:00→10:28)
[2021-10-28] MEDS: Fenofibrate 160 MG TAB PO SCH (10:00)
[2021-10-28] MEDS ORDERED: PATIENTS OWN MEDICATION (Cholecalciferol (Vitamin D3) 1 TAB) PO SCH (10:00)
[2021-10-28] MEDS ORDERED: PATIENTS OWN MEDICATION (Benazepril Hcl 20 MG) PO SCH (10:00)
[2021-10-28] MEDS: MIRABEGRON 25 MG PO SCH ×2 (10:00→21:29)
[2021-10-28] MEDS ORDERED: PATIENTS OWN MEDICATION (Pregabalin (Lyrica) 50 MG) PO SCH (10:00)
[2021-10-28] MEDS ORDERED: DULOXETINE HCL 120 MG PO SCH (10:00)
[2021-10-28] MEDS: BENAZEPRIL HCL 10 MG TAB PO SCH (10:27)
[2021-10-28] MEDS: amLODIPine BESYLATE 5 MG TAB PO SCH (10:27)
[2021-10-28] MEDS: CHOLECALCIFEROL (VITD3) 2,000 UNIT CAP/TAB PO SCH (10:27)
[2021-10-28] MEDS: CALCIUM W/VIT D (600MG/400IU) TAB PO SCH ×2 (10:28→21:27)
[2021-10-28] MEDS: MULTIPLE VITAMINS W/ MINERALS TAB PO SCH (10:28)
[2021-10-28] MEDS: ATENOLOL 25 MG TAB PO SCH (10:30)
[2021-10-28] MEDS: PREGABALIN 25 MG CAP PO SCH (10:31)
[2021-10-28] MEDS: DULoxetine HCL 30 MG CAP PO SCH (10:32)
[2021-10-28 11:41] VITALS: BP 159/89
[2021-10-28 13:00] VITALS: BP 142/74
[2021-10-28 17:00] VITALS: BP 156/87
[2021-10-28 22:00] VITALS: BP 131/76
[2021-10-29 05:00] VITALS: BP 140/68
[2021-10-29] MEDS: FUROSEMIDE 40 MG/4 ML VIAL IV SCH ×2 (06:47→18:30)
[2021-10-29] MEDS: HEPARIN SODIUM (PORCINE) 5000 UNITS/ML 1ML VIAL SC SCH ×3 (06:48→22:11)
[2021-10-29 07:00] LABS: Basophils # (auto) 0 10 ^3/uL (0-0.2); Basophils % (auto) 0.3 % (0.0-2.0); Eosinophils # (auto) 0.1 10 ^3/uL (0-0.8); Eosinophils % (auto) 0.7 % (0.0-7.0); Hematocrit 34.4 % (36.0-46.0); Hemoglobin 11.4 g/dL (12.2-16.2); Monocytes # (auto) 1.1 10 ^3/uL (0-1.3); Monocytes % (auto) 11.3 % (0.0-12.0); Neutrophils # (auto) 7.7 10 ^3/uL (1.6-8.6); Neutrophils % (auto) 77.7 % (37.0-80.0); Nucleated Red Blood Cells % 0.1 %; Red Blood Cells 4.05 10^6/uL (4.0-5.20); Red Cell Distribution Width 15.5 % (11.8-14.3); White Blood Cell 9.8 10^3/uL (4.4-10.8)
[2021-10-29 07:05] LABS: Albumin 3.2 g/dL (3.4-5.0); Calcium 8.7 mg/dL (8.5-10.1); Potassium 3.5 mmol/L (3.5-5.1)
[2021-10-29 07:10] LABS: Bilirubin, Total 0.8 mg/dL (0.2-1.0); Total Protein 6.4 g/dL (6.4-8.2)
[2021-10-29 07:47] LABS: % Iron Saturation 6.9 % (15-50)
[2021-10-29 08:53] VITALS: BP 136/66
[2021-10-29] MEDS: Fenofibrate 160 MG TAB PO SCH (09:18)
[2021-10-29] MEDS: MIRABEGRON 25 MG PO SCH ×2 (09:18→22:00)
[2021-10-29] MEDS: DULoxetine HCL 30 MG CAP PO SCH (09:19)
[2021-10-29] MEDS: PREGABALIN 25 MG CAP PO SCH (09:20)
[2021-10-29] MEDS: BENAZEPRIL HCL 10 MG TAB PO SCH (09:20)
[2021-10-29] MEDS: amLODIPine BESYLATE 5 MG TAB PO SCH (09:21)
[2021-10-29] MEDS: MULTIPLE VITAMINS W/ MINERALS TAB PO SCH (09:21)
[2021-10-29] MEDS: CALCIUM W/VIT D (600MG/400IU) TAB PO SCH ×2 (09:22→21:57)
[2021-10-29] MEDS: PANTOPRAZOLE 40 MG TAB PO SCH (09:22)
[2021-10-29] MEDS: CHOLECALCIFEROL (VITD3) 2,000 UNIT CAP/TAB PO SCH (09:22)
[2021-10-29] MEDS: ATENOLOL 25 MG TAB PO SCH (09:23)
[2021-10-29 13:00] VITALS: BP 141/85
[2021-10-29] MEDS: AZITHROMYCIN 500MG/ 250ML 250 ML IV ONE ×2 (15:44→16:05)
[2021-10-29 17:16] VITALS: BP 148/69
[2021-10-29] MEDS: methylPREDNISolone SOD SUCC 40 MG/ML VL IV SCH (21:57)
[2021-10-29 22:00] VITALS: BP 145/75
[2021-10-29] MEDS ORDERED: hydrOXYchloroQUINE SULFATE 200 MG TAB PO SCH (22:00)
[2021-10-30 05:00] VITALS: BP 130/74
[2021-10-30] MEDS: FUROSEMIDE 40 MG/4 ML VIAL IV SCH ×2 (05:38→17:31)
[2021-10-30 05:40] LABS: BUN/Creatinine Ratio 18.2; Potassium 4.1 mmol/L (3.5-5.1)
[2021-10-30] MEDS: HEPARIN SODIUM (PORCINE) 5000 UNITS/ML 1ML VIAL SC SCH ×3 (05:42→22:00)
[2021-10-30 05:46] LABS: Basophils # (auto) 0 10 ^3/uL (0-0.2); Basophils % (auto) 0.7 % (0.0-2.0); Eosinophils # (auto) 0 10 ^3/uL (0-0.8); Eosinophils % (auto) 0.2 % (0.0-7.0); Hematocrit 36.6 % (36.0-46.0); Hemoglobin 12.1 g/dL (12.2-16.2); Lymphocytes # (auto) 0.5 10 ^3/uL (0.4-5.4); Lymphocytes % (auto) 8.1 % (10.0-50.0); Mean Corpuscular Hgb Conc. 33.2 g/dL (32.0-36.0); Mean Corpuscular Volume 84.4 fL (80.0-100.0); Monocytes # (auto) 0.2 10 ^3/uL (0-1.3); Red Blood Cells 4.33 10^6/uL (4.0-5.20); Red Cell Distribution Width 15.1 % (11.8-14.3); White Blood Cell 5.7 10^3/uL (4.4-10.8)
[2021-10-30] MEDS: MIRABEGRON 25 MG PO SCH ×2 (08:54→21:42)
[2021-10-30 09:00] VITALS: BP_SYST 124; BP_SYST 95; BP_DIAS 63; BP_DIAS 71
[2021-10-30] MEDS: AZITHROMYCIN 500MG/ 250ML 250 ML IV SCH (09:44)
[2021-10-30] MEDS: MULTIPLE VITAMINS W/ MINERALS TAB PO SCH (09:45)
[2021-10-30] MEDS: methylPREDNISolone SOD SUCC 40 MG/ML VL IV SCH ×2 (09:45→21:41)
[2021-10-30] MEDS: CALCIUM W/VIT D (600MG/400IU) TAB PO SCH ×2 (09:53→21:40)
[2021-10-30] MEDS: amLODIPine BESYLATE 5 MG TAB PO SCH (09:53)
[2021-10-30] MEDS: DULoxetine HCL 30 MG CAP PO SCH (09:55)
[2021-10-30] MEDS: PANTOPRAZOLE 40 MG TAB PO SCH (09:55)
[2021-10-30] MEDS: ATENOLOL 25 MG TAB PO SCH (09:57)
[2021-10-30] MEDS: BENAZEPRIL HCL 10 MG TAB PO SCH (09:58)
[2021-10-30] MEDS: CHOLECALCIFEROL (VITD3) 2,000 UNIT CAP/TAB PO SCH (09:58)
[2021-10-30] MEDS: PREGABALIN 25 MG CAP PO SCH (09:58)
[2021-10-30] MEDS: Fenofibrate 160 MG TAB PO SCH (09:59)
[2021-10-30 13:00] VITALS: BP 126/73
[2021-10-30 16:56] VITALS: BP 114/56
[2021-10-30 21:04] LABS: Urine Bacteria NONE SEEN /hpf (None Seen); Urine Blood Negative /uL (Negative); Urine Hyaline Cast FEW /lpf (0 - 2); Urine Specific Gravity 1.008 (1.001-1.035); Urine WBC <1 /hpf (0 - 5)
[2021-10-30] MEDS: hydrOXYchloroQUINE SULFATE 200 MG TAB PO SCH (21:41)
[2021-10-30 22:44] VITALS: BP 140/73
[2021-10-31 05:00] VITALS: BP 113/65
[2021-10-31] MEDS: FUROSEMIDE 40 MG/4 ML VIAL IV SCH ×3 (05:37→18:35)
[2021-10-31] MEDS: HEPARIN SODIUM (PORCINE) 5000 UNITS/ML 1ML VIAL SC SCH ×3 (05:39→21:05)
[2021-10-31 06:05] LABS: Basophils # (auto) 0 10 ^3/uL (0-0.2); Basophils % (auto) 0.2 % (0.0-2.0); Eosinophils # (auto) 0 10 ^3/uL (0-0.8); Hemoglobin 11.7 g/dL (12.2-16.2); Lymphocytes # (auto) 0.6 10 ^3/uL (0.4-5.4); Mean Corpuscular Hemoglobin 28.3 pg (28.0-32.0); Mean Corpuscular Hgb Conc. 33.6 g/dL (32.0-36.0); Mean Corpuscular Volume 84.3 fL (80.0-100.0); Monocytes # (auto) 0.3 10 ^3/uL (0-1.3); Monocytes % (auto) 2.7 % (0.0-12.0); Neutrophils # (auto) 8.6 10 ^3/uL (1.6-8.6); Neutrophils % (auto) 91.1 % (37.0-80.0); Red Blood Cells 4.15 10^6/uL (4.0-5.20); Red Cell Distribution Width 15.3 % (11.8-14.3); White Blood Cell 9.5 10^3/uL (4.4-10.8)
[2021-10-31 06:19] LABS: BUN/Creatinine Ratio 25.9; Calcium 9.3 mg/dL (8.5-10.1); Potassium 4.1 mmol/L (3.5-5.1)
[2021-10-31 07:14] LABS: INR 1.08 (0.9-1.15); Partial Thromboplastin Time 27.3 sec (23.6-33.0)
[2021-10-31 09:00] VITALS: BP 135/65
[2021-10-31] MEDS: methylPREDNISolone SOD SUCC 40 MG/ML VL IV SCH (09:49)
[2021-10-31] MEDS: CHOLECALCIFEROL (VITD3) 2,000 UNIT CAP/TAB PO SCH (09:50)
[2021-10-31] MEDS: MULTIPLE VITAMINS W/ MINERALS TAB PO SCH (09:50)
[2021-10-31] MEDS: amLODIPine BESYLATE 5 MG TAB PO SCH (09:50)
[2021-10-31] MEDS: PANTOPRAZOLE 40 MG TAB PO SCH (09:50)
[2021-10-31] MEDS: CALCIUM W/VIT D (600MG/400IU) TAB PO SCH ×2 (09:51→21:03)
[2021-10-31] MEDS: BENAZEPRIL HCL 10 MG TAB PO SCH (09:51)
[2021-10-31] MEDS: ATENOLOL 25 MG TAB PO SCH (09:53)
[2021-10-31] MEDS: AZITHROMYCIN 500MG/ 250ML 250 ML IV SCH (09:54)
[2021-10-31] MEDS: Fenofibrate 160 MG TAB PO SCH (09:54)
[2021-10-31] MEDS: DULoxetine HCL 30 MG CAP PO SCH (10:00)
[2021-10-31] MEDS: MIRABEGRON 25 MG PO SCH ×2 (10:00→21:05)
[2021-10-31] MEDS ORDERED: levoFLOXacin 750MG 150 ML IV ONE (10:30)
[2021-10-31] MEDS ORDERED: IOHEXOL 350 MG/ML 100ML IJ ONE (12:36)
[2021-10-31] MEDS ORDERED: LIDOCAINE 2%HCL (LOCAL ANESTH.) INJ 10ml MDV ONE (12:36)
[2021-10-31 13:00] VITALS: BP 142/78
[2021-10-31] MEDS ORDERED: fentaNYL CITRATE 100 MCG/2 ML VL ONE (13:59)
[2021-10-31] MEDS ORDERED: ANGIOMAX 250 MG VIAL IV ONE (13:59)
[2021-10-31] MEDS ORDERED: SODIUM CHL 0.9% 0 ML ONE (13:59)
[2021-10-31] MEDS ORDERED: diphenhdrAMINE HCL 50 MG/1 ML VL ONE (13:59)
[2021-10-31] MEDS ORDERED: methylPREDNISolone SOD SUCC 125 MG/2 ML VL ONE (14:00)
[2021-10-31] MEDS ORDERED: cefTRIAXone 1GM/50ML D5W 0 ML IV ONE (14:27)
[2021-10-31] MEDS ORDERED: cefTRIAXone 1GM/50ML D5W 50 ML IV ONE (14:45)
[2021-10-31 15:55] VITALS: BP 143/77
[2021-10-31] MEDS: PREGABALIN 25 MG CAP PO SCH (17:00)
[2021-10-31] MEDS: hydrOXYchloroQUINE SULFATE 200 MG TAB PO SCH (21:04)
[2021-10-31 22:00] VITALS: BP 114/62
[2021-11-01 05:00] VITALS: BP 119/59
[2021-11-01 05:44] LABS: Basophils # (auto) 0 10 ^3/uL (0-0.2); Basophils % (auto) 0.2 % (0.0-2.0); Eosinophils # (auto) 0 10 ^3/uL (0-0.8); Eosinophils % (auto) 0.1 % (0.0-7.0); Hematocrit 35.8 % (36.0-46.0); Hemoglobin 11.8 g/dL (12.2-16.2); Lymphocytes # (auto) 1.8 10 ^3/uL (0.4-5.4); Lymphocytes % (auto) 18.4 % (10.0-50.0); Mean Corpuscular Hemoglobin 27.9 pg (28.0-32.0); Mean Corpuscular Hgb Conc. 32.9 g/dL (32.0-36.0); Mean Corpuscular Volume 84.8 fL (80.0-100.0); Monocytes # (auto) 1.3 10 ^3/uL (0-1.3); Monocytes % (auto) 12.7 % (0.0-12.0); Neutrophils # (auto) 6.8 10 ^3/uL (1.6-8.6); Neutrophils % (auto) 68.6 % (37.0-80.0); Red Blood Cells 4.22 10^6/uL (4.0-5.20); Red Cell Distribution Width 15.2 % (11.8-14.3); White Blood Cell 9.9 10^3/uL (4.4-10.8)
[2021-11-01 05:51] LABS: Calcium 9.3 mg/dL (8.5-10.1); Potassium 3.8 mmol/L (3.5-5.1)
[2021-11-01 05:54] LABS: BUN/Creatinine Ratio 29.9
[2021-11-01] MEDS: FUROSEMIDE 40 MG/4 ML VIAL IV SCH ×2 (05:54→17:52)
[2021-11-01] MEDS: HEPARIN SODIUM (PORCINE) 5000 UNITS/ML 1ML VIAL SC SCH ×3 (05:56→21:55)
[2021-11-01 08:00] VITALS: BP 117/73
[2021-11-01 09:24] VITALS: BP 117/73
[2021-11-01] MEDS: MIRABEGRON 25 MG PO SCH ×2 (10:00→21:53)
[2021-11-01] MEDS ORDERED: levoFLOXacin 750MG 150 ML IV SCH (10:00)
[2021-11-01] MEDS: DULoxetine HCL 30 MG CAP PO SCH (10:52)
[2021-11-01] MEDS: MULTIPLE VITAMINS W/ MINERALS TAB PO SCH (10:53)
[2021-11-01] MEDS: CALCIUM W/VIT D (600MG/400IU) TAB PO SCH ×2 (10:53→21:53)
[2021-11-01] MEDS: PANTOPRAZOLE 40 MG TAB PO SCH (10:53)
[2021-11-01] MEDS: PREGABALIN 25 MG CAP PO SCH (10:53)
[2021-11-01] MEDS: ATENOLOL 25 MG TAB PO SCH (10:54)
[2021-11-01] MEDS: CHOLECALCIFEROL (VITD3) 2,000 UNIT CAP/TAB PO SCH (10:54)
[2021-11-01] MEDS: Fenofibrate 160 MG TAB PO SCH (11:44)
[2021-11-01 13:00] VITALS: BP 138/76
[2021-11-01 17:00] VITALS: BP 122/72
[2021-11-01] MEDS: SACUBITRIL-VALSARTAN 24mg/26mg TAB PO SCH (21:53)
[2021-11-01] MEDS: hydrOXYchloroQUINE SULFATE 200 MG TAB PO SCH (21:54)
[2021-11-01 22:00] VITALS: BP 110/69
[2021-11-01] MEDS: NITROGLYCERIN 0.4 MG SL TAB SL PRN ×3 (23:29→23:38)
[2021-11-01] MEDS ORDERED: MORPHINE SULFATE 4 MG/ML SYR/VIAL IV PRN (23:45)
[2021-11-02 05:00] VITALS: BP 112/69
[2021-11-02 05:25] LABS: BUN/Creatinine Ratio 30.4; Calcium 9.2 mg/dL (8.5-10.1); Magnesium 2.2 mg/dL (1.6-2.6); Potassium 3.8 mmol/L (3.5-5.1)
[2021-11-02] MEDS: FUROSEMIDE 40 MG/4 ML VIAL IV SCH ×2 (06:02→17:02)
[2021-11-02] MEDS: HEPARIN SODIUM (PORCINE) 5000 UNITS/ML 1ML VIAL SC SCH ×3 (06:05→22:00)
[2021-11-02 08:00] VITALS: BP 112/69
[2021-11-02 09:09] VITALS: BP 143/91
[2021-11-02] MEDS: Fenofibrate 160 MG TAB PO SCH (09:22)
[2021-11-02] MEDS: MIRABEGRON 25 MG PO SCH ×2 (09:22→22:00)
[2021-11-02] MEDS: MULTIPLE VITAMINS W/ MINERALS TAB PO SCH (09:34)
[2021-11-02] MEDS: CALCIUM W/VIT D (600MG/400IU) TAB PO SCH (09:34)
[2021-11-02] MEDS: PREGABALIN 25 MG CAP PO SCH (09:34)
[2021-11-02] MEDS: PANTOPRAZOLE 40 MG TAB PO SCH (09:34)
[2021-11-02] MEDS: ATENOLOL 25 MG TAB PO SCH (09:34)
[2021-11-02] MEDS: SACUBITRIL-VALSARTAN 24mg/26mg TAB PO SCH (09:34)
[2021-11-02] MEDS: DULoxetine HCL 30 MG CAP PO SCH (09:34)
[2021-11-02] MEDS: CHOLECALCIFEROL (VITD3) 2,000 UNIT CAP/TAB PO SCH (09:35)
[2021-11-02] MEDS ORDERED: ONDANSETRON HCL 4 MG/2 ML VIAL IV PRN (12:30)
[2021-11-02] MEDS: PANTOPRAZOLE 40 MG/10 ML VIAL INJ IV SCH (12:44)
[2021-11-02 13:00] VITALS: BP 112/71
[2021-11-02 17:08] VITALS: BP 101/59
[2021-11-02 22:00] VITALS: BP 105/65
[2021-11-03] MEDS: hydrOXYchloroQUINE SULFATE 200 MG TAB PO SCH (00:29)
[2021-11-03] MEDS: CALCIUM W/VIT D (600MG/400IU) TAB PO SCH ×2 (00:29→09:22)
[2021-11-03] MEDS: SACUBITRIL-VALSARTAN 24mg/26mg TAB PO SCH ×2 (00:29→09:22)
[2021-11-03 04:56] VITALS: BP 96/54
[2021-11-03] MEDS: FUROSEMIDE 40 MG/4 ML VIAL IV SCH (06:00)
[2021-11-03] MEDS: HEPARIN SODIUM (PORCINE) 5000 UNITS/ML 1ML VIAL SC SCH (06:28)
[2021-11-03] MEDS: MIRABEGRON 25 MG PO SCH (07:16)
[2021-11-03] MEDS: Fenofibrate 160 MG TAB PO SCH (07:16)
[2021-11-03 07:38] VITALS: BP 96/54
[2021-11-03 09:00] VITALS: BP 95/58
[2021-11-03] MEDS: PANTOPRAZOLE 40 MG TAB PO SCH (09:22)
[2021-11-03] MEDS: PREGABALIN 25 MG CAP PO SCH (09:22)
[2021-11-03] MEDS: PANTOPRAZOLE 40 MG/10 ML VIAL INJ IV SCH (09:22)
[2021-11-03] MEDS: ATENOLOL 25 MG TAB PO SCH (09:22)
[2021-11-03] MEDS: DULoxetine HCL 30 MG CAP PO SCH (09:22)
[2021-11-03] MEDS: CHOLECALCIFEROL (VITD3) 2,000 UNIT CAP/TAB PO SCH (09:22)
[2021-11-03] MEDS: MULTIPLE VITAMINS W/ MINERALS TAB PO SCH (09:22)
[2021-11-03] MEDS ORDERED: levoFLOXacin 750MG 150 ML IV SCH (10:00)
[2021-11-03] MEDS ORDERED: LEVO750T8 PO (11:12)
[2021-11-03] MEDS ORDERED: FURO1TAB33 PO (11:12)
[2021-11-03 11:28] VITALS: BP 95/58
[2021-11-03 12:53] VITALS: BP 101/63
== END 2021-11-03 13:11 | disposition home health service (06) | DRG 280 ==
LOC: EDBD 23:42 → ER 23:43 → TELE 10-28 03:10 → TELE-WESTW 10-28 09:00
PROVIDERS: ADMIT Internal Medicine; ATTEND Internal Medicine Pulmonary Disease
PROC: 4A023N7 Measurement of Cardiac Sampling and Pressure, Left Heart, Percutaneous Approach (ICD-10-PCS; principal; 2021-10-31)
PROC: B2111ZZ Fluoroscopy of Multiple Coronary Arteries using Low Osmolar Contrast (ICD-10-PCS; 2021-10-31)
PROC: B2151ZZ Fluoroscopy of Left Heart using Low Osmolar Contrast (ICD-10-PCS; 2021-10-31)
DX: I21.4 Non-ST elevation (NSTEMI) myocardial infarction (principal); J96.01 Acute respiratory failure with hypoxia; J18.9 Pneumonia, unspecified organism; I50.43 Acute on chronic combined systolic (congestive) and diastolic (congestive) heart failure; I16.0 Hypertensive urgency; E11.9 Type 2 diabetes mellitus without complications; D64.9 Anemia, unspecified; H53.8 Other visual disturbances; Z20.822 Contact with and (suspected) exposure to COVID-19; I11.0 Hypertensive heart disease with heart failure; Z95.0 Presence of cardiac pacemaker; Z88.6 Allergy status to analgesic agent; Z88.1 Allergy status to other antibiotic agents; Z91.041 Radiographic dye allergy status; Z91.011 Allergy to milk products; Z88.5 Allergy status to narcotic agent; Z88.0 Allergy status to penicillin; Z88.2 Allergy status to sulfonamides; Z88.8 Allergy status to other drugs, medicaments and biological substances; Z91.09 Other allergy status, other than to drugs and biological substances
CPT/HCPCS: 36415; 70450; 71045; 80048; 80053; 81001; 82728; 82962; 83540; 83550; 83690; 83735; 83880; 84484; 85025; 85610; 85730; 87086; 93005; 93458; 94640; 96374; 96375; 99152; C9113; G0378; J0696; J1956; J2001; J2405; J3490

== ENCOUNTER → 2021-12-08 | Outpatient (CLI) | payer MEDICARE, BC ==
[~2021-12-08] MED LIST changes: -ALBUAER3 IN; +FURO1TAB33 PO; +HYDR200T36 PO; +LEVO750T8 PO; +METF-370 PO; -MIRA25TA OR
== END | disposition home or self-care (01) ==
LOC: Rad HDHVI 09:58
PROVIDERS: ATTEND Internal Medicine Cardiovascular Disease
DX: I07.1 Rheumatic tricuspid insufficiency (principal); R06.02 Shortness of breath; R00.2 Palpitations
CPT/HCPCS: 93306

== ENCOUNTER → 2022-02-23 | Outpatient (CLI) | payer MEDICARE, BC ==
[2022-02-23 11:20] VITALS: BP 125/76
[2022-02-23 12:44] VITALS: BP 146/75
== END | disposition home or self-care (01) ==
LOC: Rad HDHVI 11:02
PROVIDERS: ATTEND Internal Medicine Cardiovascular Disease
DX: R94.4 Abnormal results of kidney function studies (principal); I63.9 Cerebral infarction, unspecified
CPT/HCPCS: 36415; 70470; 82565; 84520; G0463

== ENCOUNTER → 2022-03-02 | Outpatient (CLI) | payer MEDICARE, BC | END | disposition home or self-care (01) | LOC: Rad HDHVI 13:00 | PROVIDERS: ATTEND Internal Medicine Cardiovascular Disease | DX: I08.1 Rheumatic disorders of both mitral and tricuspid valves (principal); I50.23 Acute on chronic systolic (congestive) heart failure; R07.89 Other chest pain | CPT/HCPCS: 93306 ==

== ENCOUNTER → 2022-03-19 | Outpatient (CLI) | payer MEDICARE, BC ==
[~2022-03-19] MED LIST changes: +ASCO500T11 PO; +DIGO0.12 PO; +METO-289 PO
[2022-03-19 08:12] VITALS: BP 192/92
[2022-03-19 08:46] VITALS: BP 186/91
[2022-03-19 11:33] LABS: Calcium 9.3 mg/dL (8.5-10.1); Potassium 3.6 mmol/L (3.5-5.1)
[2022-03-19 11:38] LABS: Basophils # (auto) 0 10 ^3/uL (0-0.2); Basophils % (auto) 0.3 % (0.0-2.0); Eosinophils # (auto) 0.1 10 ^3/uL (0-0.8); Eosinophils % (auto) 1.1 % (0.0-7.0); Hematocrit 35.9 % (36.0-46.0); Hemoglobin 11.4 g/dL (12.2-16.2); Lymphocytes # (auto) 0.8 10 ^3/uL (0.4-5.4); Lymphocytes % (auto) 17.8 % (10.0-50.0); Mean Corpuscular Hemoglobin 27.2 pg (28.0-32.0); Mean Corpuscular Hgb Conc. 31.8 g/dL (32.0-36.0); Mean Corpuscular Volume 85.4 fL (80.0-100.0); Monocytes # (auto) 0.6 10 ^3/uL (0-1.3); Monocytes % (auto) 13.3 % (0.0-12.0); Neutrophils # (auto) 3.2 10 ^3/uL (1.6-8.6); Neutrophils % (auto) 67.5 % (37.0-80.0); Nucleated Red Blood Cells % 0.1 %; Red Blood Cells 4.21 10^6/uL (4.0-5.20); Red Cell Distribution Width 14.5 % (11.8-14.3); White Blood Cell 4.7 10^3/uL (4.4-10.8)
[2022-03-19 11:58] LABS: INR 1.03 (0.9-1.15); Partial Thromboplastin Time 28.5 sec (24.6-33.4)
== END | disposition home or self-care (01) ==
LOC: Rad HDHVI 08:01
PROVIDERS: ATTEND Internal Medicine Cardiovascular Disease
DX: M47.814 Spondylosis without myelopathy or radiculopathy, thoracic region (principal); I70.0 Atherosclerosis of aorta; I11.0 Hypertensive heart disease with heart failure; I50.9 Heart failure, unspecified; R94.31 Abnormal electrocardiogram [ECG] [EKG]; Z01.818 Encounter for other preprocedural examination
CPT/HCPCS: 36415; 71046; 80048; 85025; 85610; 85730; 93005; G0463

== ENCOUNTER 2022-03-24 10:50 | Inpatient (IN) | payer MEDICARE, BC ==
[2022-03-24] VITALS (7 sets, daily range): BP systolic 119–173; BP diastolic 51–87
[~2022-03-24] VITALS: Ht 172.7 cm; Wt 65.5 kg
[~2022-03-24 10:50] MED LIST changes: -AMLO-489 PO; -ATEN-60 PO; -BENA20TA14 PO; -CALCTAB25 PO; -DICL75TA3 PO; -LEVO750T8 PO; -METF-370 PO
[2022-03-24] MEDS ORDERED: VANCOMYCIN 1GM/250ML 250 ML IV ONE ×2 (11:45→12:50)
[2022-03-24] MEDS ORDERED: fentaNYL CITRATE 100 MCG/2 ML VL ONE (12:49)
[2022-03-24] MEDS ORDERED: VANCOMYCIN HCL 1000 MG VL ONE (12:49)
[2022-03-24] MEDS ORDERED: MIDAZOLAM HCL 2MG/2ML 2ml VIAL (1mg/ml) ONE (12:49)
[2022-03-24] MEDS ORDERED: LIDOCAINE 2%HCL (LOCAL ANESTH.) INJ 20ML MDV ONE (12:50)
[2022-03-24] MEDS ORDERED: IOHEXOL 350 MG/ML 100ML IJ ONE ×2 (13:59→14:01)
[2022-03-24] MEDS ORDERED: FUROSEMIDE 20 MG/2 ML VIAL ONE (15:17)
[2022-03-24] MEDS ORDERED: MORPHINE SULFATE INJ 2 MG/ml SYRG IV PRN (16:00)
[2022-03-24] MEDS: ACETAMINOPHEN 500 MG TAB PO PRN (18:39)
[2022-03-24] MEDS: PREGABALIN 25 MG CAP PO SCH (22:38)
[2022-03-24] MEDS: METOPROLOL SUCCINATE XL 50 MG TAB PO SCH (22:38)
[2022-03-25] VITALS (10 sets, daily range): BP systolic 94–145; BP diastolic 55–79
[2022-03-25] MEDS: PREGABALIN 25 MG CAP PO SCH ×3 (06:28→22:01)
[2022-03-25] MEDS: ACETAMINOPHEN 500 MG TAB PO PRN ×3 (06:29→23:33)
[2022-03-25] MEDS: NITROFURANTOIN 50 MG PO SCH (08:46)
[2022-03-25] MEDS: PATIENTS OWN MEDICATION (Fenofibrate 160 MG) PO SCH (08:46)
[2022-03-25] MEDS: METOPROLOL SUCCINATE XL 50 MG TAB PO SCH ×2 (08:47→22:02)
[2022-03-25] MEDS: FUROSEMIDE 20 MG TAB PO SCH (08:47)
[2022-03-25] MEDS: DULoxetine HCL 30 MG CAP PO SCH (09:12)
[2022-03-25] MEDS: levoFLOXacin 500MG 100 ML IV SCH (09:12)
[2022-03-25] MEDS: hydrOXYchloroQUINE SULFATE 200 MG TAB PO SCH (09:13)
[2022-03-25] MEDS: PANTOPRAZOLE 40 MG TAB PO SCH (09:13)
[2022-03-25] MEDS: DIGOXIN 0.125 MG TAB PO SCH (09:13)
[2022-03-25] MEDS ORDERED: SODIUM CHLORIDE 0.9% 500 ML IV ONE (09:15)
[2022-03-25 09:55] LABS: Basophils # (auto) 0 10 ^3/uL (0-0.2); Basophils % (auto) 0.2 % (0.0-2.0); Eosinophils # (auto) 0 10 ^3/uL (0-0.8); Eosinophils % (auto) 0.1 % (0.0-7.0); Hematocrit 31.5 % (36.0-46.0); Hemoglobin 10.2 g/dL (12.2-16.2); Lymphocytes # (auto) 0.3 10 ^3/uL (0.4-5.4); Lymphocytes % (auto) 6.2 % (10.0-50.0); Mean Corpuscular Hemoglobin 27.9 pg (28.0-32.0); Mean Corpuscular Hgb Conc. 32.4 g/dL (32.0-36.0); Mean Corpuscular Volume 85.9 fL (80.0-100.0); Monocytes # (auto) 0.8 10 ^3/uL (0-1.3); Neutrophils # (auto) 3.7 10 ^3/uL (1.6-8.6); Neutrophils % (auto) 77.5 % (37.0-80.0); Nucleated Red Blood Cells % 0.1 %; Red Blood Cells 3.67 10^6/uL (4.0-5.20); White Blood Cell 4.8 10^3/uL (4.4-10.8)
[2022-03-25 10:18] LABS: BUN/Creatinine Ratio 16.7; Calcium 9.1 mg/dL (8.5-10.1); Potassium 3.1 mmol/L (3.5-5.1)
[2022-03-25] MEDS ORDERED: POTASSIUM CHL 20 Meq TABLET PO ONE (15:30)
[2022-03-25] MEDS: NITROGLYCERIN 0.4 MG SL TAB SL PRN ×3 (17:55→23:19)
[2022-03-26] VITALS (7 sets, daily range): BP systolic 134–168; BP diastolic 72–82
[2022-03-26] MEDS: PREGABALIN 25 MG CAP PO SCH ×3 (06:02→21:43)
[2022-03-26 06:20] LABS: BUN/Creatinine Ratio 14.7
[2022-03-26] MEDS: levoFLOXacin 500MG 100 ML IV SCH (10:40)
[2022-03-26] MEDS: NITROFURANTOIN 50 MG PO SCH (10:40)
[2022-03-26] MEDS: PATIENTS OWN MEDICATION (Fenofibrate 160 MG) PO SCH (10:40)
[2022-03-26] MEDS: METOPROLOL SUCCINATE XL 50 MG TAB PO SCH ×2 (10:41→21:44)
[2022-03-26] MEDS: PANTOPRAZOLE 40 MG TAB PO SCH (10:42)
[2022-03-26] MEDS: hydrOXYchloroQUINE SULFATE 200 MG TAB PO SCH (10:42)
[2022-03-26] MEDS: DIGOXIN 0.125 MG TAB PO SCH (10:43)
[2022-03-26] MEDS: FUROSEMIDE 20 MG TAB PO SCH (10:43)
[2022-03-26] MEDS: DULoxetine HCL 30 MG CAP PO SCH (10:54)
[2022-03-26] MEDS: ACETAMINOPHEN 500 MG TAB PO PRN (14:51)
[2022-03-27 05:00] VITALS: BP 159/80
[2022-03-27] MEDS: PREGABALIN 25 MG CAP PO SCH ×2 (05:29→13:51)
[2022-03-27 09:00] VITALS: BP_SYST 100; BP_SYST 149; BP_DIAS 64; BP_DIAS 71
[2022-03-27] MEDS: levoFLOXacin 500MG 100 ML IV SCH (09:40)
[2022-03-27] MEDS: DIGOXIN 0.125 MG TAB PO SCH (09:45)
[2022-03-27] MEDS: PANTOPRAZOLE 40 MG TAB PO SCH (09:47)
[2022-03-27] MEDS: METOPROLOL SUCCINATE XL 50 MG TAB PO SCH (09:47)
[2022-03-27] MEDS: hydrOXYchloroQUINE SULFATE 200 MG TAB PO SCH (09:47)
[2022-03-27] MEDS: FUROSEMIDE 20 MG TAB PO SCH (09:47)
[2022-03-27] MEDS: DULoxetine HCL 30 MG CAP PO SCH (09:48)
[2022-03-27] MEDS: PATIENTS OWN MEDICATION (Fenofibrate 160 MG) PO SCH (09:48)
[2022-03-27] MEDS: NITROFURANTOIN 50 MG PO SCH (09:48)
[2022-03-27 13:00] VITALS: BP 142/73
[2022-03-27 18:34] VITALS: BP 149/71
== END 2022-03-27 20:37 | disposition home or self-care (01) | DRG 226 ==
LOC: CATH 10:50 → TELE 16:12 → TELE-WESTW 18:15
PROVIDERS: ADMIT Internal Medicine Cardiovascular Disease; ATTEND Internal Medicine Cardiovascular Disease
PROC: 02PA0MZ Removal of Cardiac Lead from Heart, Open Approach (ICD-10-PCS; principal; 2022-03-24)
PROC: 02HK3KZ Insertion of Defibrillator Lead into Right Ventricle, Percutaneous Approach (ICD-10-PCS; 2022-03-24)
PROC: 0JH609Z Insertion of Cardiac Resynchronization Defibrillator Pulse Generator into Chest Subcutaneous Tissue and Fascia, Open Approach (ICD-10-PCS; 2022-03-24)
PROC: 02HL3KZ Insertion of Defibrillator Lead into Left Ventricle, Percutaneous Approach (ICD-10-PCS; 2022-03-24)
PROC: 02H63KZ Insertion of Defibrillator Lead into Right Atrium, Percutaneous Approach (ICD-10-PCS; 2022-03-24)
PROC: 0JPT0PZ Removal of Cardiac Rhythm Related Device from Trunk Subcutaneous Tissue and Fascia, Open Approach (ICD-10-PCS; 2022-03-24)
DX: I49.5 Sick sinus syndrome (principal); I50.21 Acute systolic (congestive) heart failure; I47.2 Ventricular tachycardia; I11.0 Hypertensive heart disease with heart failure; I42.0 Dilated cardiomyopathy; E87.6 Hypokalemia; Z20.822 Contact with and (suspected) exposure to COVID-19; E11.9 Type 2 diabetes mellitus without complications; Z95.0 Presence of cardiac pacemaker; Z88.5 Allergy status to narcotic agent; Z88.0 Allergy status to penicillin; Z88.2 Allergy status to sulfonamides; Z88.8 Allergy status to other drugs, medicaments and biological substances; Z79.84 Long term (current) use of oral hypoglycemic drugs
CPT/HCPCS: 33214; 36415; 71045; 80048; 82962; 85025; 93005; 99152; 99153; C1882; G0378; J1956; J2250

== ENCOUNTER → 2022-04-01 | Outpatient (CLI) | payer MEDICARE, BC ==
[~2022-04-01] MED LIST changes: +D5W 5% 1,000 ML IV ONE; +D5W 5% 1,000 ML IVB ONE; +MULTIPLE VIT 10 ML IV ONE
[2022-04-01 10:25] VITALS: BP 120/75
[2022-04-01 12:22] LABS: Basophils # (auto) 0 10 ^3/uL (0-0.2); Basophils % (auto) 0.2 % (0.0-2.0); Eosinophils # (auto) 0.1 10 ^3/uL (0-0.8); Eosinophils % (auto) 1.5 % (0.0-7.0); Hematocrit 37.9 % (36.0-46.0); Hemoglobin 11.9 g/dL (12.2-16.2); Lymphocytes # (auto) 0.7 10 ^3/uL (0.4-5.4); Lymphocytes % (auto) 16.4 % (10.0-50.0); Mean Corpuscular Hemoglobin 26.6 pg (28.0-32.0); Mean Corpuscular Hgb Conc. 31.4 g/dL (32.0-36.0); Mean Corpuscular Volume 84.8 fL (80.0-100.0); Monocytes # (auto) 0.7 10 ^3/uL (0-1.3); Monocytes % (auto) 15.6 % (0.0-12.0); Neutrophils % (auto) 66.3 % (37.0-80.0); Nucleated Red Blood Cells % 0.2 %; Red Blood Cells 4.46 10^6/uL (4.0-5.20); Red Cell Distribution Width 14.5 % (11.8-14.3); White Blood Cell 4.5 10^3/uL (4.4-10.8)
[2022-04-01 12:34] LABS: BUN/Creatinine Ratio 13.5; CRP High Sensitivity 0.64 mg/dL (< 0.3); Calcium 9.3 mg/dL (8.5-10.1); Potassium 3.8 mmol/L (3.5-5.1)
[2022-04-01 15:23] VITALS: BP 144/78
[2022-04-01 16:40] LABS: Urine Blood Negative /uL (Negative); Urine Specific Gravity 1.008 (1.001-1.035)
== END | disposition home or self-care (01) ==
LOC: CHF HDHVI 10:28
PROVIDERS: ATTEND Internal Medicine Cardiovascular Disease
DX: I11.0 Hypertensive heart disease with heart failure (principal); I50.23 Acute on chronic systolic (congestive) heart failure; I25.2 Old myocardial infarction; E11.9 Type 2 diabetes mellitus without complications; Z88.6 Allergy status to analgesic agent; Z88.0 Allergy status to penicillin; Z88.2 Allergy status to sulfonamides; Z79.899 Other long term (current) drug therapy; Z95.810 Presence of automatic (implantable) cardiac defibrillator; Z88.8 Allergy status to other drugs, medicaments and biological substances; Z88.5 Allergy status to narcotic agent; Z79.84 Long term (current) use of oral hypoglycemic drugs
CPT/HCPCS: 36415; 80048; 81003; 85025; 85652; 86141; 93005; 96365; 96366; G0463; J7060

== ENCOUNTER → 2022-04-14 | Outpatient (CLI) | payer MEDICARE, BC ==
[~2022-04-14] MED LIST changes: -D5W 5% 1,000 ML IV ONE; -D5W 5% 1,000 ML IVB ONE; -MULTIPLE VIT 10 ML IV ONE
== END | disposition home or self-care (01) ==
LOC: Rad HDHVI 08:23
PROVIDERS: ATTEND Internal Medicine Cardiovascular Disease
DX: I08.1 Rheumatic disorders of both mitral and tricuspid valves (principal); R00.2 Palpitations; R06.02 Shortness of breath
CPT/HCPCS: 93306

== ENCOUNTER 2022-04-16 17:12 | Emergency (ER) | payer MEDICARE, BC ==
[~2022-04-16] VITALS: Ht 172.7 cm; Wt 63.6 kg
[2022-04-16 18:26] LABS: Basophils # (auto) 0 10 ^3/uL (0-0.2); Basophils % (auto) 0.1 % (0.0-2.0); Eosinophils # (auto) 0 10 ^3/uL (0-0.8); Hematocrit 34.8 % (36.0-46.0); Lymphocytes # (auto) 0.6 10 ^3/uL (0.4-5.4); Lymphocytes % (auto) 9.4 % (10.0-50.0); Mean Corpuscular Hemoglobin 27.2 pg (28.0-32.0); Mean Corpuscular Hgb Conc. 31.6 g/dL (32.0-36.0); Mean Corpuscular Volume 85.9 fL (80.0-100.0); Monocytes # (auto) 0.2 10 ^3/uL (0-1.3); Monocytes % (auto) 2.6 % (0.0-12.0); Neutrophils % (auto) 87.9 % (37.0-80.0); Red Blood Cells 4.04 10^6/uL (4.0-5.20); Red Cell Distribution Width 14.6 % (11.8-14.3); White Blood Cell 6.9 10^3/uL (4.4-10.8)
[2022-04-16 18:49] LABS: Albumin 3.7 g/dL (3.4-5.0); Calcium 8.7 mg/dL (8.5-10.1); Potassium 3.3 mmol/L (3.5-5.1)
[2022-04-16 18:53] LABS: Bilirubin, Total 0.6 mg/dL (0.2-1.0); Total Protein 6.7 g/dL (6.4-8.2)
[2022-04-17] MEDS ORDERED: ATENOLOL 25 MG TAB PO ONE (02:15)
[2022-04-17] MEDS ORDERED: METOPROLOL SUCCINATE XL 50 MG TAB PO ONE (02:15)
[2022-04-17] MEDS ORDERED: FUROSEMIDE 20 MG TAB PO ONE (02:15)
[2022-04-17 03:33] VITALS: BP 157/75
== END 2022-04-17 03:48 | disposition home or self-care (01) ==
LOC: ER 17:12
DX: R07.89 Other chest pain (principal); Z95.810 Presence of automatic (implantable) cardiac defibrillator; I11.0 Hypertensive heart disease with heart failure; I50.9 Heart failure, unspecified; E11.9 Type 2 diabetes mellitus without complications; I25.2 Old myocardial infarction; Z79.899 Other long term (current) drug therapy; Z88.6 Allergy status to analgesic agent; Z88.2 Allergy status to sulfonamides; Z88.0 Allergy status to penicillin
CPT/HCPCS: 36415; 71045; 80053; 83735; 83880; 84484; 85025

== ENCOUNTER → 2022-08-11 | Outpatient (CLI) | payer MEDICARE, BC | END | disposition home or self-care (01) | LOC: LAB 11:06 | PROVIDERS: ATTEND Internal Medicine Cardiovascular Disease | DX: R94.4 Abnormal results of kidney function studies (principal) | CPT/HCPCS: 36415; 82565; 84520 ==

== ENCOUNTER → 2022-08-14 | Outpatient (CLI) | payer MEDICARE, BC ==
[~2022-08-14] MED LIST changes: +IOHEXOL 350 MG/ML 100ML IJ ONE
[2022-08-14 08:43] VITALS: BP 133/59
[2022-08-14 09:30] VITALS: BP 129/60
== END | disposition home or self-care (01) ==
LOC: Rad HDHVI 08:32
PROVIDERS: ATTEND Internal Medicine Cardiovascular Disease
DX: D32.0 Benign neoplasm of cerebral meninges (principal)
CPT/HCPCS: G0463; Q9967